=== PATIENT | female | born 1985 | race Caucasian/White ===

== ENCOUNTER 2018-01-30 22:50 | Inpatient (IN) | payer OTHER, BC ==
[~2018-01-30] VITALS: Ht 167.6 cm; Wt 57.2 kg
[2018-01-30 00:15] VITALS: BP 146/79
[2018-01-30 23:15] VITALS: BP 128/71
[2018-01-30] MEDS ORDERED: ACETAMINOPHEN 325 MG TABLET PO PRN (23:45)
[2018-01-30] MEDS ORDERED: MAGNESIUM HYDROXIDE 30 ML LIQUID UDC PO PRN (23:45)
[2018-01-30] MEDS ORDERED: THIAMINE HCL 200 MG/2 ML VIAL IM ONE (23:45)
[2018-01-30] MEDS ORDERED: LOPERAMIDE HCL 2 MG CAPSULE PO PRN ×2 (23:45)
[2018-01-30] MEDS ORDERED: MAG HYDROX/AL HYDROX/SIMETH 30 ML LIQUID UDC PO PRN (23:45)
[2018-01-30] MEDS ORDERED: LORAZEPAM 1 MG TABLET PO PRN (23:45)
[2018-01-30] MEDS ORDERED: LORAZEPAM 2 MG/1 ML VIAL IM PRN (23:45)
[2018-01-30] MEDS ORDERED: diphenhydrAMINE 50 MG CAPSULE PO PRN (23:45)
[2018-01-30] MEDS ORDERED: ONDANSETRON 4 MG/2 ML VIAL IM PRN (23:45)
[2018-01-31] MEDS ORDERED: SUMATRIPTAN SUCCINATE 50 MG TABLET PO PRN
[2018-01-31] MEDS: LORAZEPAM 1 MG TABLET PO PRN ×3 (00:04→20:13)
[2018-01-31] MEDS: ONDANSETRON ODT 4 MG TAB.RAPDIS SL PRN ×2 (00:04→12:51)
[2018-01-31 00:15] VITALS: BP 146/79
[2018-01-31] MEDS ORDERED: SUMATRIPTAN SUCCINATE 50 MG TABLET PO ONE (00:15)
[2018-01-31] MEDS: CLONIDINE HCL 0.1 MG TABLET PO PRN ×2 (00:18→13:50)
[2018-01-31] MEDS: IBUPROFEN 400 MG TABLET PO PRN (00:18)
[2018-01-31 00:32] LABS: *URINE HCG, QUAL NEGATIVE (NEGATIVE)
[2018-01-31] MEDS ORDERED: NALT50TA PO (01:11)
[2018-01-31] MEDS ORDERED: QUET25TA PO (01:11)
[2018-01-31] MEDS ORDERED: TRAZ-144 PO (01:11)
[2018-01-31] MEDS ORDERED: CLON0.1T PO (01:11)
[2018-01-31] MEDS ORDERED: PROP20TA7 PO (01:11)
[2018-01-31] MEDS ORDERED: SERT50TA PO (01:11)
[2018-01-31] MEDS ORDERED: PSEU120T83 PO (01:11)
[2018-01-31] MEDS ORDERED: DISU250T7 PO (01:11)
[2018-01-31] MEDS ORDERED: MELA5TAB PO (01:11)
[2018-01-31] MEDS ORDERED: LAMO100T PO (01:11)
[2018-01-31 01:31] LABS: BASOPHILS % (AUTO) 0.8 % (0.0-2.0); EOSINOPHILS # (AUTO) 0.1 K/uL (0.0-0.7); EOSINOPHILS % (AUTO) 3.1 % (0.0-7.0); HEMATOCRIT 41.9 % (31.2-41.9); HEMOGLOBIN 14.3 g/dL (10.9-14.3); LYMPHOCYTES # (AUTO) 1.7 K/uL (20.0-40.0); LYMPHOCYTES % (AUTO) 37.1 % (20.5-51.5); MEAN CORPUSCULAR HGB CONC 34 g/dL (32.3-35.6); MONOCYTES # (AUTO) 0.3 K/uL (2.0-10.0); MONOCYTES % (AUTO) 5.7 % (0.0-11.0); NEUTROPHILS # (AUTO) 2.4 K/uL (1.8-8.9); NEUTROPHILS % (AUTO) 53.3 % (38.5-71.5); PLATELET COUNT (AUTO) 129 K/uL (179-408); RED BLOOD CELL COUNT(AUTO) 4.61 MIL/uL (3.63-4.92); WHITE BLOOD COUNT (AUTO) 4.5 K/uL (3.8-11.8)
[2018-01-31 01:45] LABS: BILIRUBIN,TOTAL 0.3 mg/dL (0.2-1.0); CREATININE 0.8 mg/dL (0.6-1.3); POTASSIUM 3.8 mmol/L (3.5-5.1); TOTAL PROTEIN, SERUM 8.1 g/dL (6.4-8.2)
[2018-01-31 01:45] LABS: *AMPHETAMINE, URINE NEGATIVE (NEGATIVE); *BARBITURATE, URINE NEGATIVE (NEGATIVE); *CANNABINOID, URINE NEGATIVE (NEGATIVE); *COCCAINE, URINE NEGATIVE (NEGATIVE); *OPIATE, URINE NEGATIVE (NEGATIVE); *PHENCYCLIDINE SCREEN,URINE NEGATIVE (NEGATIVE)
[2018-01-31 04:00] VITALS: BP 97/57
[2018-01-31 08:05] VITALS: BP 107/65
[2018-01-31] MEDS ORDERED: TUBERCULIN,PURIF.PROT.DERIV. 5 TU/0.1 ML TEST ID ONE (09:00)
[2018-01-31] MEDS: THIAMINE HCL 100 MG TABLET PO SCH (09:00)
[2018-01-31] MEDS: MULTIVITAMINS,THERAPEUTIC TABLET PO SCH (09:00)
[2018-01-31] MEDS: FOLIC ACID 1 MG TABLET PO SCH (09:00)
[2018-01-31 12:00] VITALS: BP 139/71
[2018-01-31 16:55] VITALS: BP 110/73
[2018-01-31 20:00] VITALS: BP 106/78
[2018-01-31] MEDS: LAMOTRIGINE 100 MG TABLET PO SCH (20:13)
[2018-01-31] MEDS: TRAZODONE 50 MG TABLET PO PRN (20:14)
[2018-01-31] MEDS: SERTRALINE HCL 50 MG TABLET PO SCH (20:14)
[2018-02-01] VITALS: BP 98/64
[2018-02-01 04:00] VITALS: BP 104/68
[2018-02-01 08:00] VITALS: BP 97/60
[2018-02-01] MEDS: THIAMINE HCL 100 MG TABLET PO SCH (08:45)
[2018-02-01] MEDS: FOLIC ACID 1 MG TABLET PO SCH (08:45)
[2018-02-01] MEDS: MULTIVITAMINS,THERAPEUTIC TABLET PO SCH (08:45)
[2018-02-01] MEDS: IBUPROFEN 400 MG TABLET PO PRN (08:57)
[2018-02-01 10:04] LABS: BASOPHILS % (AUTO) 1.2 % (0.0-2.0); EOSINOPHILS # (AUTO) 0.2 K/uL (0.0-0.7); LYMPHOCYTES # (AUTO) 1.3 K/uL (20.0-40.0); MEAN CORPUSCULAR HEMOGLOBIN 31.2 uug (24.7-32.8); MEAN CORPUSCULAR HGB CONC 34 g/dL (32.3-35.6); MEAN CORPUSCULAR VOLUME 91.2 fL (75.5-95.3); NEUTROPHILS # (AUTO) 1.3 K/uL (1.8-8.9); PLATELET COUNT (AUTO) 124 K/uL (179-408)
[2018-02-01 10:21] LABS: HEMATOCRIT 39.3 % (31.2-41.9); HEMOGLOBIN 13.5 g/dL (10.9-14.3); LYMPHOCYTES % (AUTO) 43.3 % (20.5-51.5); MONOCYTES # (AUTO) 0.3 K/uL (2.0-10.0); MONOCYTES % (AUTO) 8.4 % (0.0-11.0); NEUTROPHILS % (AUTO) 41.1 % (38.5-71.5); RED BLOOD CELL COUNT(AUTO) 4.31 MIL/uL (3.63-4.92)
[2018-02-01 10:23] LABS: WHITE BLOOD COUNT (AUTO) 3.1 K/uL (3.8-11.8)
[2018-02-01] MEDS ORDERED: LORAZEPAM 1 MG TABLET PO ONE (10:30)
[2018-02-01 10:41] LABS: MAGNESIUM 1.6 mg/dL (1.8-2.4); POTASSIUM 3.7 mmol/L (3.5-5.1)
[2018-02-01] MEDS ORDERED: QUETIAPINE FUMARATE 25 MG TABLET PO PRN (11:15)
[2018-02-01 12:00] VITALS: BP 113/79
[2018-02-01] MEDS ORDERED: GABAPENTIN 300 MG CAPSULE PO ONE (12:15)
[2018-02-01] MEDS ORDERED: MAGNESIUM OXIDE 400 MG TABLET PO ONE (12:15)
[2018-02-01] MEDS: CLONIDINE HCL 0.1 MG TABLET PO PRN ×2 (12:49→20:28)
[2018-02-01] MEDS ORDERED: LAMO100T2 PO (13:07)
[2018-02-01] MEDS ORDERED: GABA-534 PO (13:07)
[2018-02-01] MEDS ORDERED: SUMA50TA PO (13:07)
[2018-02-01] MEDS ORDERED: QUET25TA PO (13:07)
[2018-02-01] MEDS ORDERED: SERT50TA12 PO (13:07)
[2018-02-01] MEDS ORDERED: CLON0.1T14 PO (13:07)
[2018-02-01] MEDS ORDERED: IBUP-1953 PO (13:07)
[2018-02-01 16:30] VITALS: BP 122/79
[2018-02-01 17:08] LABS: HEPATITIS B SURFACE AG Negative (Negative)
[2018-02-01] MEDS: ONDANSETRON ODT 4 MG TAB.RAPDIS SL PRN (17:15)
[2018-02-01 20:00] VITALS: BP 141/73
[2018-02-01] MEDS: SERTRALINE HCL 50 MG TABLET PO SCH (20:27)
[2018-02-01] MEDS: LAMOTRIGINE 100 MG TABLET PO SCH (20:27)
[2018-02-01] MEDS: TRAZODONE 50 MG TABLET PO PRN (20:27)
[2018-02-01] MEDS: GABAPENTIN 300 MG CAPSULE PO SCH (20:28)
[2018-02-02] MEDS: GABAPENTIN 300 MG CAPSULE PO SCH (08:03)
[2018-02-02] MEDS: MULTIVITAMINS,THERAPEUTIC TABLET PO SCH (08:04)
[2018-02-02] MEDS: FOLIC ACID 1 MG TABLET PO SCH (08:04)
[2018-02-02] MEDS: THIAMINE HCL 100 MG TABLET PO SCH (08:04)
[2018-02-02 08:18] VITALS: BP 90/61
== END 2018-02-02 08:38 | disposition home or self-care (01) | DRG 895 ==
LOC: SRC 22:50
PROVIDERS: ADMIT Internal Medicine; ATTEND Internal Medicine
PROC: HZ2ZZZZ Detoxification Services for Substance Abuse Treatment (ICD-10-PCS; principal; 2018-01-30)
PROC: HZ41ZZZ Group Counseling for Substance Abuse Treatment, Behavioral (ICD-10-PCS; 2018-01-31)
PROC: HZ31ZZZ Individual Counseling for Substance Abuse Treatment, Behavioral (ICD-10-PCS; 2018-02-01)
DX: F10.230 Alcohol dependence with withdrawal, uncomplicated (principal); K85.20 Alcohol induced acute pancreatitis without necrosis or infection; D69.6 Thrombocytopenia, unspecified; E83.42 Hypomagnesemia; F31.81 Bipolar II disorder; F10.288 Alcohol dependence with other alcohol-induced disorder; G43.909 Migraine, unspecified, not intractable, without status migrainosus; Y90.9 Presence of alcohol in blood, level not specified; Z91.89 Other specified personal risk factors, not elsewhere classified; Z81.1 Family history of alcohol abuse and dependence; Z79.899 Other long term (current) drug therapy; F41.9 Anxiety disorder, unspecified; G47.00 Insomnia, unspecified; F17.211 Nicotine dependence, cigarettes, in remission; Z86.59 Personal history of other mental and behavioral disorders; F11.11 Opioid abuse, in remission; D72.819 Decreased white blood cell count, unspecified; I15.9 Secondary hypertension, unspecified
CPT/HCPCS: 36415; 70030-TC; 80307; 82746; 83735; 84703; 85025; 86592; 86705; 86803; 87340; 87806; A4663; G0480; J3411; Q0162; Q0163